=== PATIENT | male | born 1980 ===

== ENCOUNTER 2021-05-17 19:21 | Emergency (ER) | payer SELFPAY ==
[~2021-05-17] VITALS: Ht 172.7 cm; Wt 66.7 kg
[2021-05-17 19:24] VITALS: BP 141/87
== END 2021-05-17 23:26 ==
LOC: ED 19:26
DX: H92.02 Otalgia, left ear (principal); Z53.21 Procedure and treatment not carried out due to patient leaving prior to being seen by health care provider

== ENCOUNTER 2021-05-18 03:22 | Emergency (ER) | payer SELFPAY ==
[~2021-05-18] VITALS: Ht 172.7 cm; Wt 66.5 kg
--- NOTE | 2021-05-18 03:32 | NUR ---
PT WAS SEEN HERE EARLIER THIS EVENING FOR SAME COMPLAINT BUT LEFT AMA. PT BACK AT THIS TIME STILL HAVING LEFT EAR PAIN, APPEARS TO BE PAPER SHOVED IN LEFT EAR. PT NAD, BED IN LOWEST, RAILS ENGAGED, CALL LIGHT ON LAP, WCTM.
--- NOTE | 2021-05-18 03:41 | NUR ---
INGRID JACOBSEN REMOVED EAR WAX PAPER FROM EAR AT THIS TIME.
[2021-05-18 03:55] VITALS: BP 127/73
--- NOTE | 2021-05-18 03:56 | NUR ---
Patient given discharge instructions and they have confirmed that they understand the instructions. Patient ambulatory with steady gait. NAD, all questions answered appropriately, denies additional needs at this time. No personal belongings left in room after discharge.
== END 2021-05-18 03:57 | disposition home or self-care (01) ==
LOC: ED 03:51
DX: T16.2XXA Foreign body in left ear, initial encounter (principal); H60.502 Unspecified acute noninfective otitis externa, left ear; F17.210 Nicotine dependence, cigarettes, uncomplicated; X58.XXXA Exposure to other specified factors, initial encounter; Y93.89 Activity, other specified; Y92.89 Other specified places as the place of occurrence of the external cause; Y99.8 Other external cause status
CPT/HCPCS: 69200; 99284; 99406